=== PATIENT | female | born 1995 | race Caucasian/White ===

== ENCOUNTER 2018-02-13 08:22 | Emergency (ER) | payer SELFPAY ==
[~2018-02-13] VITALS: Ht 162.6 cm; Wt 72.6 kg
--- NOTE | 2018-02-13 08:22 | NUR ---
Patient BIBA BLS, transferred to bed 3. RN evaluating patient at bedside.
[2018-02-13 08:35] VITALS: BP 128/78
--- NOTE | 2018-02-13 08:40 | NUR ---
BIB [facility] FOUND AT AN APARTMENT COMPLEX IN [place] WITH C/O ALOC, PD AT THE SCENE; PT NOT ANSWERING QUESTIONS AT THIS TIME, ONLY REPOND TO NO C/O PAIN, NO FAMILY AT THE SCENE OR AT THE BEDSIDE; ALL INFORMATION OBTAINED FROM PARAMEDICS; BS 156 OBTAINED ON THE FIELD HX; UNOBTAINABLE RX; YESSICA MCKEON
--- NOTE | 2018-02-13 08:43 | NUR ---
Dr. Parada evaluating patient at bedside.
--- NOTE | 2018-02-13 09:11 | NUR ---
EMT NAVI ATTEMPTED TO DO AN EKG, PATIENT DENIED PULLING BLANKETS BACK OVER HER HEAD AND MOVING INTO A POSITION.
--- NOTE | 2018-02-13 09:15 | NUR ---
PT UNCOOPERATIVE, REFUSE TO HAVE BLOOD DRAWN, IV INSERTION, OR EKG DR TREJO NOTIFIED
--- NOTE | 2018-02-13 09:25 | NUR ---
PT SLEEPING, ON MONITOR, NO DISTRESS NOTED, VSS, WILL CONTINUE TO MONITOR
[2018-02-13 10:45] VITALS: BP 108/54
--- NOTE | 2018-02-13 10:50 | NUR ---
With assistance from SCOTTIE Hanna, Tech Heriberto, student nurse Mar, IV insertion done by SCOTTIE Becerra at Rt AC 20g, blood drawn, straight catheter with urine sample taken and send to the lab, Pt give more information - name, age, adress taken, vss will continue to monitor
--- NOTE | 2018-02-13 11:15 | NUR ---
Pt raffy, Dr Parada notified, security notified, notified, fuad pd notified
[2018-02-13 11:22] LABS: BASOPHILS % (AUTO) 0.4 % (0.0-2.0); EOSINOPHILS # (AUTO) 0.2 K/uL (0-0.4); EOSINOPHILS % (AUTO) 2.7 % (0.0-4.0); HEMATOCRIT 38.6 % (36-48); HEMOGLOBIN 12.3 g/dL (12.0-16.0); LYMPHOCYTES % (AUTO) 28.9 % (20.5-51.1); MEAN CORPUSCULAR HEMOGLOBIN 26 pg (27-31); MEAN CORPUSCULAR HGB CONC 32 g/dL (33-37); MEAN CORPUSCULAR VOLUME 80.7 fL (80-94); MONOCYTES # (AUTO) 0.6 K/uL (0.8-1.0); MONOCYTES % (AUTO) 7.9 % (1.7-9.3); NEUTROPHILS # (AUTO) 4.2 K/uL (1.8-7.7); NEUTROPHILS % (AUTO) 60.1 % (42.2-75.2); PLATELET COUNT (AUTO) 215 K/uL (140-450); RED BLOOD CELL COUNT(AUTO) 4.78 MIL/uL (4.20-5.40); RED CELL DISTRIBUTION WIDTH 13.6 % (11.6-13.7); WHITE BLOOD COUNT (AUTO) 7.1 K/uL (4.8-10.8)
[2018-02-13 11:33] LABS: APPEARANCE,URINE CLEAR (CLEAR); BILIRUBIN,URINE NEGATIVE (NEGATIVE); BLOOD, URINE NEGATIVE (NEGATIVE); COLOR,URINE YELLOW (YELLOW); LEUKOCYTE ESTERASE ,URINE NEGATIVE (NEGATIVE); NITRITE, URINE NEGATIVE (NEGATIVE); UGLUCOSE NEGATIVE (NEGATIVE)
[2018-02-13 11:36] LABS: BARBITURATE, URINE NEG. ng/ml (NEG <=200); BENZODIAZEPINE, URINE NEG. ng/mL (NEG <=200); CANNABINOID, URINE NEG. ng/mL (NEG <=50); COCAINE, URINE NEG. ng/mL (NEG <=300); OPIATE, URINE NEG. ng/mL (NEG <=2000); PHENCYCLIDINE SCREEN,URINE NEG. ng/mL (NEG <=25)
[2018-02-13 11:49] LABS: RBC,URINE 0-5 (RARE) /HPF (0-5); WBC,URINE 0-5 (RARE) /HPF (0-5)
[2018-02-13 11:51] LABS: ALBUMIN 3.8 g/dL (3.4-5.0); ANION GAP 9.4 (8-16); ASPARTATE AMINOTRANSFERASE 16 U/L (15-37); CARBON DIOXIDE 25.5 mmol/L (21-32); CHLORIDE 105 mmol/L (98-107); GFR ARICAN-AMERICAN 89 mL/min (>90); GLUCOSE 106 mg/dL (74-106); POTASSIUM 3.9 mmol/L (3.5-5.1); SODIUM SERUM 136 mmol/L (136-145); TOTAL BILIRUBIN 0.2 mg/dL (0.0-1.0); UREA NITROGEN, BLOOD 19 mg/dL (7-18)
[2018-02-13 11:56] LABS: ACETAMINOPHEN < 0.5 ug/ml (10-30); SALICYLATE < 2.8 mg/dL (2.8-20.0)
[2018-02-13 12:19] LABS: CKMB RELATIVE INDEX 0.6 (0.0-2.5); CREATINE KINASE MB 3.7 ng/mL (0-3.6)
== END 2018-02-13 11:15 | disposition left against medical advice (07) ==
LOC: MED 08:22
DX: R41.82 Altered mental status, unspecified (principal)
CPT/HCPCS: 36415; 80053; 80305; 81001; 81025; 82550; 82553; 84484; 85025; 99284; G0480; G0482; 99285